=== PATIENT | female | born 1955 | race Caucasian/White ===

== ENCOUNTER 2022-09-22 07:18 | Day surgery (SDC) | payer OTHER ==
[~2022-09-22] VITALS: Ht 165.1 cm; Wt 67.6 kg
[2022-09-22] MEDS ORDERED: LIDOCAINE 2% 100 MG/5 ML UJET TP ONE (08:28)
[2022-09-22] MEDS ORDERED: fentaNYL citrate 0.05 MG/ML VIAL ONE (08:28)
[2022-09-22] MEDS ORDERED: MIDAZOLAM 2 MG/2 ML VIAL ONE (08:28)
[2022-09-22] MEDS ORDERED: fentaNYL citrate 0.05 MG/ML VIAL IVP ONE (09:40)
[2022-09-22] MEDS ORDERED: MIDAZOLAM 2 MG/2 ML VIAL IVP ONE (09:40)
== END 2022-09-22 09:38 | disposition home or self-care (01) ==
LOC: MDS 07:18 → MMU 07:18 → MDS 09:38
PROVIDERS: ATTEND Internal Medicine Gastroenterology
DX: Z12.11 Encounter for screening for malignant neoplasm of colon (principal); K21.9 Gastro-esophageal reflux disease without esophagitis; I10 Essential (primary) hypertension; G47.00 Insomnia, unspecified; F32.A Depression, unspecified; M81.0 Age-related osteoporosis without current pathological fracture; F41.9 Anxiety disorder, unspecified; M19.90 Unspecified osteoarthritis, unspecified site; Z90.710 Acquired absence of both cervix and uterus; Z79.899 Other long term (current) drug therapy; Z20.822 Contact with and (suspected) exposure to COVID-19
CPT/HCPCS: 43235; 45378; 87426; J2250; J3010